=== PATIENT | male | born 1965 | race Caucasian/White ===

== ENCOUNTER 2020-04-14 18:51 | Emergency (ER) | payer BC ==
[2020-04-14] MEDS ORDERED: MORPHINE 4 MG/ML SYR ONE (20:06)
[2020-04-14] MEDS ORDERED: ONDANSETRON 4 MG/2 ML VIAL ONE (20:06)
[2020-04-14] MEDS ORDERED: NA CHLORIDE 0.9% 1,000 ML ONE (20:06)
[2020-04-14 20:20] LABS: Absolute Lymphocytes (CBC) 2.3 K/uL (0.7-4.9); Hematocrit 41.6 % (39.6-49.0); Lymphocytes % 32.7 % (15.3-44.8); MPV 8.1 fL (7.6-11.3); RBC Red Blood Cell Count 4.84 M/uL (4.33-5.43)
[2020-04-14 20:33] LABS: Albumin 4.1 g/dL (3.4-5.0); Bilirubin Direct 0.5 mg/dL (0-0.2); Bilirubin Total 1.1 mg/dL (0.2-1.0); Potassium 3.5 mmol/L (3.5-5.1); Protein, Total 7.6 g/dL (6.4-8.2)
--- NOTE | 2020-04-14 20:57 | RAD REPORT ---
EXAM DESCRIPTION: CTAbdomen Pelvis W Contrast - 04/14/2020 8:41 pm CLINICAL HISTORY: Abdominal pain. ABD PAIN COMPARISON: No comparisons TECHNIQUE: Biphasic CT imaging of the abdomen and pelvis was performed with 100 ml non-ionic IV cont rast. All CT scans are performed using dose optimization technique as appropriate and may include automated exposure control or mA/KV adjustment according to patient size. FINDINGS: The lung bases are clear. The liver, spleen, pancreas, adrenal glands and kidneys are within normal limits. No bowel obstruction, free air, free fluid or abscess. Small fat containing umbilical hernia. The ap pendix is normal. No evidence of significant lymphadenopathy. No suspicious bony findings. IMPRESSION: No acute intra-abdominal or pelvic finding.
--- NOTE | 2020-04-14 21:44 | EDPHYS ---
Physician Documentation [facility] Name: Maulik Humphreys Age: 54 yrs Sex: Male : 1965 Arrival Date: 04/14/2020 Time: 18:57 Bed 7 Private MD: ED Physician Lobo Patel HPI: 04/14 19:56 This 54 yrs old Male presents to ER via Ambulatory with complaints of pm1 Abdominal Pain. 19:56 The patient presents with abdominal pain in the right upper quadrant. Onset: The pm1 symptoms/episode began/occurred today. The symptoms do not radiate. Associated signs and symptoms: Pertinent positives: constipation, Pertinent negatives: nausea, vomiting, and diarrhea, chest pain, dysuria, fever, shortness of breath. The symptoms are described as crampy. Modifying factors: The symptoms are alleviated by OTC constipation medications. Medication worked and patient with large bowel movement but abdominal pain continued. Severity of pain: in the emergency department the pain is unchanged. The patient has experienced a previous episode, many years ago, similar to prior "stomach spasm". Historical: - Allergies: 19:02 No Known Allergies; sv - Home Meds: 19:02 Prozac Oral [Active]; sv - PMHx: 19:02 Depression; sv - PSHx: 19:02 hip; Tonsillectomy; sv - Immunization history:: Adult Immunizations up to date, Flu vaccine is not up to date. - Social history:: Smoking status: Patient denies any tobacco usage or history of. ROS: 19:56 Constitutional: Negative for fever, chills, and weight loss, Neck: Negative for injury, pm1 pain, and swelling, Cardiovascular: Negative for chest pain, palpitations, and edema, Respiratory: Negative for shortness of breath, cough, wheezing, and pleuritic chest pain. 19:56 Back: Negative for injury and pain, : Negative for injury, bleeding, discharge, and swelling, MS/Extremity: Negative for injury and deformity, Skin: Negative for injury, rash, and discoloration, Neuro: Negative for headache, weakness, numbness, tingling, and seizure. 19:56 Abdomen/GI: Positive for abdominal pain, constipation, Negative for nausea, vomiting, and diarrhea. Exam: 19:56 Constitutional: This is a well developed, well nourished patient who is awake, alert, pm1 and in no acute distress. Head/Face: Normocephalic, atraumatic. Neck: Trachea midline, no thyromegaly or masses palpated, and no cervical lymphadenopathy. Supple, full range of motion without nuchal rigidity, or vertebral point tenderness. No Meningismus. Chest/axilla: Normal chest wall appearance and motion. Nontender with no deformity. No lesions are appreciated. 19:56 Back: No spinal tenderness. No costovertebral tenderness. Full range of motion. Skin: Warm, dry with normal turgor. Normal color with no rashes, no lesions, and no evidence of cellulitis. MS/ Extremity: Pulses equal, no cyanosis. Neurovascular intact. Full, normal range of motion. 19:56 Cardiovascular: Exam negative for acute changes, Rate: normal, Rhythm: regular, Pulses: no pulse deficits are appreciated. 19:56 Respiratory: Exam negative for acute changes, respiratory distress, shortness of breath. 19:56 Abdomen/GI: Inspection: abdomen appears normal, Palpation: abdomen is soft and non-tender, in all quadrants, mass, is not appreciated, rebound tenderness, is not appreciated. 19:56 Neuro: Exam negative for acute changes, Orientation: is normal, Mentation: is normal, Motor: is normal, moves all fours. Vital Signs: 19:03 BP 142 / 82; Pulse 52; Resp 16; Temp 98.4; Pulse Ox 99% on R/A; Weight 99.79 kg; Height sv 6 ft. 3 in. (190.50 cm); 19:03 Body Mass Index 27.50 (99.79 kg, 190.50 cm) sv MDM: 19:51 Patient medically screened. pm1 21:15 Data reviewed: vital signs. Data interpreted: Pulse oximetry: on room air is 99 %. pm1 Interpretation: normal. Counseling: I had a detailed discussion with the patient and/or guardian regarding: the historical points, exam findings, and any diagnostic results supporting the discharge/admit diagnosis, lab results, radiology results, the need for outpatient follow up, to return to the emergency department if symptoms worsen or persist or if there are any questions or concerns that arise at home. 04/14 19:55 Order name: Basic Metabolic Panel; Complete Time: 20:36 pm1 04/14 19:55 Order name: CBC with Diff; Complete Time: 20:36 pm1 04/14 19:55 Order name: Hepatic Function; Complete Time: 20:36 pm1 04/14 19:55 Order name: Lipase; Complete Time: 20:36 pm1 04/14 19:55 Order name: CT Abd/Pelvis - IV Contrast Only; Complete Time: 21:07 pm1 04/14 20:31 Order name: CREATININE WHOLE BLOOD; Complete Time: 20:36 EDMS 04/14 19:55 Order name: IV Saline Lock; Complete Time: 20:09 pm1 04/14 19:55 Order name: Labs collected and sent; Complete Time: 20:09 pm1 Administered Medications: 20:09 Drug: morphine 4 mg Route: IVP; Site: right antecubital; rv 21:00 Follow up: Response: No adverse reaction; RASS: Alert and Calm (0) rv 20:09 Drug: Zofran (Ondansetron) 4 mg Route: IVP; Site: right antecubital; rv 21:00 Follow up: Response: No adverse reaction rv 20:10 Drug: NS 0.9% 1000 ml Route: IV; Rate: 1000 ml; Site: right antecubital; rv 21:30 Follow up: IV Status: Completed infusion; IV Intake: 1000ml rv 21:55 Drug: Bentyl 20 mg Route: PO; rv 22:15 Follow up: Response: Medication administered at discharge. rv Disposition: 04/15 06:53 Co-signature as Attending Physician, Lobo Patel MD I agree with the assessment and tw4 plan of care. Disposition: 04/14/20 21:43 Discharged to Home. Impression: Unspecified abdominal pain. - Condition is Stable. - Discharge Instructions: Abdominal Pain, Adult. - Prescriptions for Bentyl 20 mg Oral Tablet - take 1 tablet by ORAL route every 6 hours As needed; 20 tablet. - Medication Reconciliation Form, Thank You Letter, Antibiotic Education, Prescription Opioid Use form. - Follow up: Emergency Department; When: As needed; Reason: Worsening of condition. Follow up: Private Physician; When: 2 - 3 days; Reason: Recheck today's complaints, Continuance of care, Re-evaluation by your physician. - Problem is new. - Symptoms have improved. Signatures: Dispatcher [employer] Jana Awad RN RN Sunday Crabtree NP INFRASTRUCTURE TECH pm1 Harvinder Good, RN RN jb4 Lobo Patel MD MD tw4 Kvng Islas, RN RN rv Corrections: (The following items were deleted from the chart) 04/14 22:12 21:43 04/14/2020 21:43 Discharged to Home. Impression: Unspecified abdominal pain. jb4 Condition is Stable. Forms are Medication Reconciliation Form, Thank You Letter, Antibiotic Education, Prescription Opioid Use. Follow up: Emergency Department; When: As needed; Reason: Worsening of condition. Follow up: Private Physician; When: 2 - 3 days; Reason: Recheck today's complaints, Continuance of care, Re-evaluation by your physician. Problem is new. Symptoms have improved. pm1
--- NOTE | 2020-04-14 21:44 | ER ---
Nurse's Notes [facility] Name: Maulik Humphreys Age: 54 yrs Sex: Male : 1965 Arrival Date: 04/14/2020 Time: 18:57 Bed 7 Private MD: Diagnosis: Unspecified abdominal pain Presentation: 04/14 19:00 Chief complaint: Patient states: right sided abd pain after breakfast today, thought he sv was constipated and took some meds. Had results but the pain has not improved. Denies n/v. Coronavirus screen: Proceed with normal triage. Patient denies a cough. Patient denies shortness of breath or difficulty breathing. Patient reports a measured and/or subjective temperature greater than 100.4F. Patient denies travel on a cruise ship or to a country the [facility] currently lists as an affected area. Patient denies contact with known and/or suspected case of COVID-19. Ebola Screen: No symptoms or risks identified at this time. Risk Assessment: Do you want to hurt yourself or someone else? Patient reports no desire to harm self or others. Onset of symptoms was April 14, 2020. 19:00 Method Of Arrival: Ambulatory sv 19:00 Acuity: ARTHUR 3 sv 19:03 Initial Sepsis Screen: Does the patient meet any 2 criteria? No. Patient's initial sv sepsis screen is negative. Does the patient have a suspected source of infection? Yes: Acute abdominal pain. Triage Assessment: 19:06 General: Appears in no apparent distress. uncomfortable, Behavior is calm, cooperative, sv appropriate for age. Pain: Complains of pain in right upper quadrant and right lower quadrant. Neuro: Level of Consciousness is awake, alert, obeys commands, Gait is steady. Respiratory: Respiratory effort is even, unlabored. GI: Reports lower abdominal pain, upper abdominal pain. Historical: - Allergies: 19:02 No Known Allergies; sv - Home Meds: 19:02 Prozac Oral [Active]; sv - PMHx: 19:02 Depression; sv - PSHx: 19:02 hip; Tonsillectomy; sv - Immunization history:: Adult Immunizations up to date, Flu vaccine is not up to date. - Social history:: Smoking status: Patient denies any tobacco usage or history of. Screenin:00 Abuse screen: Denies threats or abuse. Denies injuries from another. rv 19:00 Nutritional screening: No deficits noted. Tuberculosis screening: No symptoms or risk rv factors identified. Fall Risk None identified. Assessment: 19:00 General: Appears comfortable, Behavior is calm, cooperative. rv 19:00 Pain: Complains of pain in abdomen. Neuro: Level of Consciousness is awake, alert, rv obeys commands, Oriented to person, place, time, situation. Cardiovascular: Patient's skin is warm and dry. Respiratory: Airway is patent. GI: Bowel sounds present X 4 quads. Abd is soft and non tender X 4 quads. Vital Signs: 19:03 BP 142 / 82; Pulse 52; Resp 16; Temp 98.4; Pulse Ox 99% on R/A; Weight 99.79 kg; Height sv 6 ft. 3 in. (190.50 cm); 19:03 Body Mass Index 27.50 (99.79 kg, 190.50 cm) sv ED Course: 18:57 Patient arrived in ED. mr 19:00 Patient has correct armband on for positive identification. Pulse ox on. NIBP on. rv 19:02 Triage completed. sv 19:03 Arm band placed on. sv 19:30 Inserted saline lock: 18 gauge in right antecubital area, using aseptic technique. rv Blood collected. 19:40 Sunday Flores NP is PHCP. pm1 19:40 Lobo Patel MD is Attending Physician. pm1 19:58 Kvng Islas RN is Primary Nurse. rv 20:40 CT Abd/Pelvis - IV Contrast Only In Process Unspecified. EDMS 22:00 No provider procedures requiring assistance completed. rv 22:00 IV discontinued, intact, bleeding controlled, No redness/swelling at site. Pressure rv dressing applied. Administered Medications: 20:09 Drug: morphine 4 mg Route: IVP; Site: right antecubital; rv 21:00 Follow up: Response: No adverse reaction; RASS: Alert and Calm (0) rv 20:09 Drug: Zofran (Ondansetron) 4 mg Route: IVP; Site: right antecubital; rv 21:00 Follow up: Response: No adverse reaction rv 20:10 Drug: NS 0.9% 1000 ml Route: IV; Rate: 1000 ml; Site: right antecubital; rv 21:30 Follow up: IV Status: Completed infusion; IV Intake: 1000ml rv 21:55 Drug: Bentyl 20 mg Route: PO; rv 22:15 Follow up: Response: Medication administered at discharge. rv Intake: 21:30 IV: 1000ml; Total: 1000ml. rv Outcome: 21:43 Discharge ordered by . pm1 22:00 Discharged to home ambulatory. rv 22:00 Condition: good 22:00 Discharge instructions given to patient, Instructed on discharge instructions, follow rv up and referral plans. medication usage, Demonstrated understanding of instructions, follow-up care, medications, Prescriptions given X 1. 22:12 Patient left the ED. jb4 Signatures: Dispatcher [employer] EDMS Jana Alexander RN RN Gabrielle Gibson mr Sunday Flores, METALLURGICAL ENGINEER METALLURGICAL ENGINEER pm1 Harvinder Good RN RN jb4 Kvng Islas RN RN rv Corrections: (The following items were deleted from the chart) 19:06 19:03 Pulse 52bpm; Resp 16bpm; Pulse Ox 99% RA; Temp 98.4F; 99.79 kg; Height 6 ft. 3 sv in.; BMI: 27.5; sv
[2020-04-14] MEDS ORDERED: DICYCLOMINE HCL 10 MG CAP ONE (21:59)
[2020-04-14 22:17] VITALS: BP 142/82; TEMP 98.4; O2SAT 99
== END 2020-04-14 22:12 | disposition home or self-care (01) ==
LOC: ER 18:51
DX: R10.11 Right upper quadrant pain (principal); F32.9 Major depressive disorder, single episode, unspecified
CPT/HCPCS: 85025; 80048; 36415; 82565; 80076; 83690; 74177; Q9967; J7030; J2405; 96361; 96374; 96375; 99284